=== PATIENT | female | born 1975 | race Caucasian/White ===

== ENCOUNTER 2018-01-24 08:18 | Emergency (ER) | payer MEDICAID ==
[~2018-01-24] VITALS: Ht 167.6 cm; Wt 82.1 kg
[2018-01-24 09:17] LABS: UA SPECIFIC GRAVITY 1.015 (1.005-1.035); microscopic required? YES; urine erythrocyte NEGATIVE (NEGATIVE)
[2018-01-24 09:19] LABS: BASOPHIL % 0.4 % (0-2); PLATELET COUNT 285 x10^3mcL (130-400)
[2018-01-24 09:26] LABS: CALCIUM 8.6 mg/dL (8.5-10.1); CARBON DIOXIDE 25.7 mmol/L (21-32); CHLORIDE SERUM 103 mmol/L (98-107); CREATININE SERUM 0.7 mg/dL (0.6-1.0); GFR1 > 60 mL/min; GLUCOSE SERUM 102 mg/dL (74-106); POTASSIUM SERUM 3.9 mmol/L (3.5-5.1); SODIUM SERUM 138 mmol/L (136-145)
[2018-01-24 09:27] LABS: RED CELL DISTRIBUTION WIDTH 16.1 % (11.5-14.5)
[2018-01-24 09:33] LABS: ALBUMIN 3.6 g/dL (3.4-5.0); ALKALINE PHOSPHATASE 73 U/L (46-116); ALT/SGPT 28 U/L (14-59); AST/SGOT 28 U/L (15-37); BILIRUBIN TOTAL 0.48 mg/dL (0.20-1.00); TOTAL PROTEIN, SERUM 7.6 g/dL (6.4-8.2)
[2018-01-24 11:22] VITALS: BP 126/93
== END 2018-01-24 11:22 | disposition home or self-care (01) ==
LOC: ED 08:18
PROVIDERS: Emergency Medicine
DX: R53.1 Weakness (principal); N39.0 Urinary tract infection, site not specified; R22.42 Localized swelling, mass and lump, left lower limb
CPT/HCPCS: J0696; J7030; Q0092

== ENCOUNTER 2018-02-01 09:58 | Emergency (ER) | payer MEDICAID ==
[~2018-02-01] VITALS: Ht 167.6 cm; Wt 80.7 kg
[2018-02-01 10:08] VITALS: Ht 167.6 cm; Wt 80.7 kg
[2018-02-01 13:16] VITALS: BP 126/71
== END 2018-02-01 13:16 | disposition home or self-care (01) ==
LOC: ED 09:58
DX: R20.2 Paresthesia of skin (principal); M62.830 Muscle spasm of back
CPT/HCPCS: Q0092

== ENCOUNTER 2018-12-27 10:57 | Emergency (ER) | payer MEDICAID ==
[~2018-12-27] VITALS: Ht 167.6 cm; Wt 83.0 kg
[2018-12-27 11:20] VITALS: Ht 167.6 cm; Wt 83.0 kg
[2018-12-27 12:11] VITALS: BP 122/77
== END 2018-12-27 12:11 | disposition home or self-care (01) ==
LOC: ED 10:57
DX: M62.830 Muscle spasm of back (principal)

== ENCOUNTER 2019-02-04 10:53 | Emergency (ER) | payer MEDICAID ==
[~2019-02-04] VITALS: Ht 167.6 cm; Wt 83.9 kg
[2019-02-04 11:01] VITALS: Ht 167.6 cm; Wt 83.9 kg
[2019-02-04 11:54] VITALS: BP 124/77
== END 2019-02-04 11:54 | disposition home or self-care (01) ==
LOC: ED 10:53
DX: M79.674 Pain in right toe(s) (principal); W22.8XXA Striking against or struck by other objects, initial encounter; Y93.89 Activity, other specified; Y92.89 Other specified places as the place of occurrence of the external cause; Y99.8 Other external cause status